=== PATIENT | female | born 1945 | race Caucasian/White ===

== ENCOUNTER 2023-06-20 12:12 | Emergency (ER) | payer MEDICARE ==
[~2023-06-20] VITALS: Ht 167.6 cm; Wt 70.0 kg
[2023-06-20 12:16] VITALS: TEMP 98.1; O2SAT 99
[2023-06-20] MEDS ORDERED: ONDANSETRON 4MG ODT PO ONE (13:15)
[2023-06-20] MEDS ORDERED: HYDROCODONE/ACETAMINOPHEN 5/325MG TABLET PO ONE (13:15)
[2023-06-20 14:45] VITALS: BP 140/90; PULSE 100; RESP 18
[2023-06-20] MEDS ORDERED: ONDANSETRON 4MG ODT PO NR (14:45)
[2023-06-20] MEDS ORDERED: HYDROCODONE/ACETAMINOPHEN 5/325MG TABLET PO NR (14:45)
[2023-06-20] MEDS ORDERED: LIDO700A15 TP (17:14)
== END 2023-06-20 17:30 | disposition home or self-care (01) ==
LOC: ER 14:41
DX: M54.6 Pain in thoracic spine (principal); J44.9 Chronic obstructive pulmonary disease, unspecified; E11.9 Type 2 diabetes mellitus without complications; I10 Essential (primary) hypertension
CPT/HCPCS: 99284; 72128; 72131; Q0162